=== PATIENT | male | born 1990 | race Caucasian/White ===

== ENCOUNTER 2020-05-26 19:34 | Emergency (ER) | payer MEDICAID ==
[~2020-05-26] VITALS: Ht 175.3 cm; Wt 60.1 kg
[2020-05-26 19:44] VITALS: BP 106/82
[2020-05-26] MEDS ORDERED: PHENOBARBITOL (20:02)
[2020-05-26] MEDS ORDERED: MAGNESIUM/ALUMINUM HYDROXIDE/SIMETHICONE 30ML UDC PO STA (20:14)
[2020-05-26] MEDS ORDERED: DICYCLOMINE 10 MG/5 ML ORAL SYR PO STA (20:14)
[2020-05-26] MEDS ORDERED: ONDANSETRON 4MG ODT PO STA (20:14)
[2020-05-26] MEDS ORDERED: VISCOUS LIDOCAINE 2% 15 ML UDC PO STA (20:14)
[2020-05-26] MEDS ORDERED: ONDA4TAB5 PO (21:07)
== END 2020-05-27 00:14 | disposition home or self-care (01) ==
LOC: ER 19:34
DX: R10.13 Epigastric pain (principal); Z88.8 Allergy status to other drugs, medicaments and biological substances; Z86.59 Personal history of other mental and behavioral disorders
CPT/HCPCS: 99284; Q0162; Z7610

== ENCOUNTER 2020-07-26 17:39 | Emergency (ER) | payer MEDICAID ==
[~2020-07-26] VITALS: Ht 172.7 cm; Wt 61.0 kg
[~2020-07-26 17:39] MED LIST: ONDA4TAB5 PO; PHENOBARBITOL
[2020-07-26 18:50] VITALS: BP 108/72
== END 2020-07-26 18:50 | disposition home or self-care (01) ==
LOC: ER 17:39
DX: F43.0 Acute stress reaction (principal); F32.9 Major depressive disorder, single episode, unspecified; R56.9 Unspecified convulsions; Z88.8 Allergy status to other drugs, medicaments and biological substances
CPT/HCPCS: 99283

== ENCOUNTER 2021-06-22 18:08 | Emergency (ER) | payer MEDICAID ==
[~2021-06-22] VITALS: Ht 175.3 cm; Wt 66.0 kg
[2021-06-22] MEDS ORDERED: SODIUM CHLORIDE 0.9% 1,000 ML IV ONE (18:30)
[2021-06-22 20:55] VITALS: BP 118/79
== END 2021-06-22 21:35 | disposition home or self-care (01) ==
LOC: ER 18:08
DX: R56.9 Unspecified convulsions (principal); F32.9 Major depressive disorder, single episode, unspecified; Z88.8 Allergy status to other drugs, medicaments and biological substances; Z98.890 Other specified postprocedural states
CPT/HCPCS: 70450; 71045; 93005; 99285; J7030

== ENCOUNTER 2022-05-31 16:10 | Emergency (ER) | payer MEDICAID ==
[~2022-05-31] VITALS: Ht 170.2 cm; Wt 70.0 kg
[2022-05-31] MEDS ORDERED: LORAZEPAM 2MG/ML CPJ IV ONE (16:30)
[2022-05-31 16:36] VITALS: BP 94/46
[2022-05-31 16:51] LABS: BASOPHILS % 0.4 % (0.0-2.0); EOSINOPHILS % 2.7 % (0.0-5.0); HEMOGLOBIN. 15.4 g/dL (14.0-18.0); MEAN CORPUSCULAR HEMOGLOBIN 30.5 pg (28.0-32.0); MEAN PLATELET VOLUME 10.1 fl (7.4-10.4); MONOCYTES % 7.7 % (2.0-8.0); NEUTROPHILS % 40.2 % (40.0-76.0); PLATELET 154 x1000/uL (130-400); RED BLOOD CELL COUNT 5.06 mill/uL (4.7-6.1); RED CELL DISTRIBUTION WIDTH 14.1 % (11.6-14.6)
[2022-05-31 16:57] LABS: CHLORIDE 106 mEq/L (98-107)
[2022-05-31 17:06] LABS: ETHANOL BLOOD < 10 mg/dL
[2022-05-31] MEDS ORDERED: POTASSIUM CHLORIDE 20MEQ TABLET SR PO NR (17:30)
== END 2022-05-31 18:49 | disposition home or self-care (01) ==
LOC: ER 16:10
DX: R56.9 Unspecified convulsions (principal); E87.6 Hypokalemia; F32.9 Major depressive disorder, single episode, unspecified; F12.10 Cannabis abuse, uncomplicated
CPT/HCPCS: 36415; 80053; 80320; 85025; 96374; 99283; J2060; G0480

== ENCOUNTER 2024-02-27 18:39 | Emergency (ER) | payer MEDICAID ==
[~2024-02-27] VITALS: Ht 170.2 cm; Wt 70.0 kg
[2024-02-27 18:43] VITALS: BP 90/53; PULSE 123; RESP 18; TEMP 97.6; O2SAT 97
[2024-02-27 19:00] VITALS: TEMP 36.44736; O2SAT 100
== END 2024-02-27 19:20 | disposition left against medical advice (07) ==
LOC: ER 18:39
DX: R56.9 Unspecified convulsions (principal); Z53.21 Procedure and treatment not carried out due to patient leaving prior to being seen by health care provider